=== PATIENT | male | born 1980 | race Caucasian/White ===

== ENCOUNTER 2019-02-06 00:05 | Emergency (ER) | payer SELFPAY ==
[2019-02-06 00:15] VITALS: TEMP 97.2; BMI 30.2
--- NOTE | 2019-02-06 00:37 | PDOC ---
History of Present Illness - General Chief Complaint: Pain, Acute Stated Complaint: ABD PAIN Time Seen by Provider: 02/06/19 00:22 History Source: Patient, Significant Other Exam Limitations: No Limitations - History of Present Illness Initial Comments: 02/06/19 00:31 38YOM without PMH who p/w severe right flank pain and RLQ abdominal pain for the past 2-3 hours, associated with sweats, nausea, and several episodes NBNB vomiting. He denies any urinary symptoms, blood in the urine, testicular pain or swelling, diarrhea, constipation, black/bloody/white stool, or other symptoms. No recent falls or injuries, never had pain like this before, no h/o surgery, no h/o kidney stones, did not take medication for his symptoms tonight , last ate at 8 pm. Past History - Past Medical History Allergies/Adverse Reactions: Allergies Allergy/AdvReac Type Severity Reaction Status Date / Time No Known Allergies Allergy Verified 02/06/19 00:37 Home Medications: Ambulatory Orders NK [No Known Home Medication] 02/06/19 - Suicide/Smoking/Psychosocial Hx Smoking History: Unknown if ever smoked Have you smoked in the past 12 months: No Information on smoking cessation initiated: No Hx Alcohol Use: No (unknown) Drug/Substance Use Hx: No (unknown) Review of Systems - Review of Systems Able to Perform ROS?: Yes Comments:: 02/06/19 00:32 GEN: sweats, chilld, no fever, generalized weakness, or weight change HEENT: no ear pain, sore throat, vision change, or eye pain CV: no chest pain, palpitations, lightheadedness, syncope, or edema RESP: no cough, wheezing, or SOB GI: abdominal pain, nausea, vomiting, no diarrhea, constipation, or white/black/ bloody stool : no dysuria, hematuria, incontinence, retention, bleeding, testicular pain/ swelling, or discharge MSK: no neck/back pain, muscle weakness/pain, or joint swelling/pain NEURO: no headache, seizure, vertigo, numbness, tingling, or focal weakness PSYCH: no substance use, no behavior change SKIN: no jaundice, no rash ROS otherwise negative except as noted in HPI *Physical Exam - Vital Signs Last Vital Signs Temp Pulse Resp BP Pulse Ox 97.2 F L 85 22 H 140/74 100 02/06/19 00:14 02/06/19 00:14 02/06/19 00:14 02/06/19 00:14 02/06/19 00:14 - Physical Exam Comments: 02/06/19 00:33 GENERAL: uncomfortable-appearing, mild-moderate distress, pale and diaphoretic appearing, cannot appear to get comfortable, answers questions appropriately, accompanied by significant other, seen walking back and forth to the bathroom to vomit HEENT: PERRLA, EOMI, moist mucous membranes NECK/BACK: no midline ttp, no spinal stepoff or deformity, no hematoma, full ROM , neck supple CARDIOVASCULAR: regular rate/rhythm, normal S1S2, no MGR, strong peripheral pulses, capillary refill <2 seconds, extremities wwp, no edema LUNGS/RESPIRATORY: no respiratory distress, CTAB GI/ABDOMEN: symmetric [id number], normoactive BS, soft, mild-moderate RLQ ttp a McBurney's point, no rebound tenderness, no midline pulsatile masses : right CVA tenderness, no testicular swelling/skin changed/tenderness, normal cremasteric reflexes bilaterally, normal testicular lay EXTREMITIES: no muscle atrophy, no acute deformity SKIN: warm and dry, no pallor, no jaundice, no rash, no bruising, no skin breakdown, no cuts, no lesions NEUROLOGICAL: GCS 15, CN II-XII grossly intact, 5/5 strength proximally and distally, no facial droop ED Treatment Course - LABORATORY CBC & Chemistry Diagram: 02/06/19 00:24 02/06/19 00:24 Medical Decision Making - Medical Decision Making 02/06/19 00:32 38YOM without PMH p/w severe flank pain and RLQ pain onset tonight with n/v ( NBNB). Initial Vital Signs Temp Pulse Resp BP Pulse Ox 97.2 F L 85 22 H 140/74 100 02/06/19 00:14 02/06/19 00:14 02/06/19 00:14 02/06/19 00:14 02/06/19 00:14 Exam: As noted in Physical Exam section. DDX IBNLT: most likely renal colic, obstructive uropathy, appendicitis or UTI/ pyelonephritis. Less likely but still considered are AAA/AD, pneumothorax, cholecystitis, cholangitis, pancreatitis, gastritis, PUD, colitis, ruptured diverticulosis, diverticulitis wwo abscess or perforation, hernia, SBO, malignancy, splenic infarction, mesenteric ischemia, bowel perforation, urethritis, musculoskeletal, constipation, etc. Unlikely testicular torsion without testicular symptoms or physical exam findings. W/U ordered: Labs as noted below, dry CT A/P TX ordered: Ofirmev, Morphine, Zofran, IVF Laboratory Tests 02/06/19 02/06/19 02/06/19 00:24 00:24 00:24 WBC 23.1 H RBC 4.87 Hgb 14.3 Hct 41.8 MCV 85.8 MCH 29.4 MCHC 34.3 RDW 13.4 Plt Count 313 MPV 8.6 Absolute Neuts (auto) 17.0 H Neutrophils % 73.4 Lymphocytes % 18.6 Monocytes % 6.7 Eosinophils % 1.1 Basophils % 0.2 Nucleated RBC % 0 PT with INR INR Sodium 141 Potassium 3.4 L Chloride 107 Carbon Dioxide 27 Anion Gap 8 BUN 14.8 Creatinine 1.3 Est GFR (CKD-EPI)AfAm 80.79 Est GFR (CKD-EPI)NonAf 69.70 Random Glucose 141 H Calcium 9.6 Total Bilirubin 0.6 AST 17 ALT 24 Alkaline Phosphatase 57 Total Protein 8.2 Albumin 4.4 Lipase 140 Urine Color Urine Appearance Urine pH Ur Specific [place] Urine Protein Urine Glucose (UA) Urine Ketones Urine Blood Urine Nitrite Urine Bilirubin Urine Urobilinogen Ur Leukocyte Esterase Urine WBC (Auto) Urine RBC (Auto) Urine Casts (Auto) U Epithel Cells (Auto) Urine Bacteria (Auto) Blood Type Antibody Screen 02/06/19 02/06/19 02/06/19 00:24 00:24 03:40 WBC RBC Hgb Hct MCV MCH MCHC RDW Plt Count MPV Absolute Neuts (auto) Neutrophils % Lymphocytes % Monocytes % Eosinophils % Basophils % Nucleated RBC % PT with INR 11.80 INR 1.00 Sodium Potassium Chloride Carbon Dioxide Anion Gap BUN Creatinine Est GFR (CKD-EPI)AfAm Est GFR (CKD-EPI)NonAf Random Glucose Calcium Total Bilirubin AST ALT Alkaline Phosphatase Total Protein Albumin Lipase Urine Color Yellow Urine Appearance Clear Urine pH 5.5 Ur Specific [place] 1.032 Urine Protein Negative Urine Glucose (UA) Negative Urine Ketones Trace H Urine Blood 2+ H Urine Nitrite Negative Urine Bilirubin Negative Urine Urobilinogen 0.2 Ur Leukocyte Esterase Negative Urine WBC (Auto) 3 Urine RBC (Auto) 19 Urine Casts (Auto) 16 U Epithel Cells (Auto) 2.4 Urine Bacteria (Auto) 1.7 Blood Type AB POSITIVE Antibody Screen Negative Reassessment: Patient states much more comfortable, states no pain at this time. He has urinated and did not see stone pass. UA does not show any e/o infection. 02/06/19 04:28 This patient has gotten significant relief of symptoms while in the ED. On last reassessment, vitals are wnl, pain is reasonably controlled, and exam is benign. Workup is not concerning for emergency-level pathology at this time. This patient is appropriate for discharge with close outpatient follow up. They are comfortable with this plan and will follow up with their primary care provider in 1-3 days. Referral information is given for Urology. E-Rx is sent to the Pt's pharmacy for tamsulosin 0.4mg daily x7 days. They are counseled to stay well-hydrated and use Ibupfrofen 800mg q6h prn. Specific return precautions are discussed and they will come back to the ER if necessary. *DC/Admit/Observation/Transfer Diagnosis at time of Disposition: Ureteral stone with hydronephrosis - Discharge Dispostion Disposition: HOME Condition at time of disposition: Stable Decision to Admit order: No - Referrals - Patient Instructions Printed Discharge Instructions: DI for Kidney Stones Additional Instructions: You were seen in the ER for a kidney stone. We did laboratory tests on your urine and found blood in the urine, which is common with kidney stones. We did not see signs of an infection in the urine or on your vital signs. We did a CT scan which showed the stone has almost passed. There was some fluid backup into your right kidney, which can be a problem if an infection develops, so be careful and watch out for fever, chills, new character of the pain, burning when you urinate, or other new symptoms. We gave you medications and IV fluids which helped your symptoms. After our assessment, we do not believe you are having a medical emergency at this time, and we believe you are safe to go home. We are giving you referral information for a urologist who you should see and speak with regarding this kidney stone to prevent future stones. Please take over the counter pain medications for pain, following the instructions on the medication label. Please follow up with your primary care provider in 1-3 days. Call their clinic [facility], tell them you were seen in the ER, and tell them you need an appointment. Please come back to the ER at any time, 24 hours a day , for any new or worsening symptoms, like worsening pain unrelieved with medications, fever, inability to urinate, burning on urination, testicular pain or swelling, or other symptoms. If you are having severe or life threatening symptoms, or symptoms that make it unsafe to drive or have someone drive you, please call 911. - Post Discharge Activity
[2019-02-06] MEDS ORDERED: morphine CARPU-JECT 4 MG/1 ML DISP.SYRIN IVPUSH ONE (00:38)
[2019-02-06] MEDS ORDERED: ACETAMINOPHEN 1000 MG/100 ML VIAL (NON FORMULARY) IVPB ONE (00:38)
[2019-02-06] MEDS ORDERED: SODIUM CHLORIDE 0.9% 500 ML INFUS.BAG IV ONE (00:39)
[2019-02-06] MEDS ORDERED: ONDANSETRON 4 MG/2 ML VIAL IVPUSH ONE (00:41)
[2019-02-06] MEDS ORDERED: ACETAMINOPHEN INJECTION 100 ML IVPB ONE (00:50)
[2019-02-06] MEDS ORDERED: morphine SULFATE 4 MG/ML VIAL ONE (00:50)
[2019-02-06] MEDS ORDERED: ONDANSETRON 4 MG/2 ML VIAL ONE (00:51)
[2019-02-06] MEDS ORDERED: KETOROLAC TROMETHAMINE 30 MG/1 ML VIAL IVPUSH ONE (01:12)
--- NOTE | 2019-02-06 01:12 | PDOC ---
Documentation entered by Leandro Huynh SCRIBE, acting as scribe for Tiffany Pope MD. Tiffany Pope MD: This documentation has been prepared by the Lino tello Elijah, SCRIBE, under my direction and personally reviewed by me in its entirety. I confirm that the documentation accurately reflects all work, treatment, procedures, and medical decision making performed by me. Attending Attestation - Resident Resident Name: Genesis Goodwin - ED Attending Attestation I have performed the following: I have examined & evaluated the patient, The case was reviewed & discussed with the resident, I agree w/resident's findings & plan - HPI HPI: 02/06/19 00:45 Patient is a 38 year old male with no reported past medical history who presents to the ED with R-sided Flank pain and Right Lower abdominal pain lasting for x3 hours. Patient tried to sleep after the onset of his pain and afterwards, he had an episode of NBNB vomiting. Patient has not taken anything for pain and notes that he has never experienced a pain like this before. Patient last ate at 8pm. Allergies: NKA - Physicial Exam PE: 02/06/19 00:53 GENERAL: Awake, alert, and fully oriented HEAD: No signs of trauma EYES: PERRLA, EOMI, sclera anicteric, conjunctiva clear ENT: Auricles normal inspection, hearing grossly normal, nares patent, oropharynx clear without exudates. Moist mucosa NECK: Normal ROM, supple, no lymphadenopathy, JVD, or masses LUNGS: Breath sounds equal, clear to auscultation bilaterally. No wheezes, and no crackles HEART: Regular rate and rhythm, normal S1 and S2, no murmurs, rubs or gallops ABDOMEN: +Right Sided Belly Pain +Minimal Guarding. Normoactive bowel sounds. No rebound. No masses EXTREMITIES: Normal range of motion, no edema. No clubbing or cyanosis. No cords, erythema, or tenderness NEUROLOGICAL: Cranial nerves II through XII grossly intact. Normal speech, normal gait SKIN: +Cold, +Clammy +Pale. No rashes or lesions noted. - Medical Decision Making 02/06/19 03:24 Patient Name: TAY GARY THIS IS A PRELIMINARY REPORT FROM [facility] DATE OF SERVICE: 2019-02-06 02:21:27 IMAGES: 525 EXAM: CT ABDOMEN \T\ PELVIS CT W/O CONTR HISTORY: Abdominal pain COMPARISON: None. FINDINGS: Abdomen Liver: Normal Spleen: Normal Pancreas: Normal Gallbladder: Normal Stomach: Normal Small bowel: Normal Large bowel: Normal Appendix: Normal Adrenals:Normal Kidneys: There is a 3 mm stone at the right ureterovesicular junction with mild right-sided hydronephrosis and ureteral distention Vascular: Normal Lymphatic: Normal Peritoneal: No free peritoneal air or fluid Pelvis: Prostate: normal Rectum: Normal Bladder: Normal The inferior thorax: Normal General: Skeletal: Normal Abdominal wall: Normal IMPRESSION: Right-sided obstructive uropathy 02/06/19 04:22 UA is normal; no sign of UTI. He will be sent home with NSAIDS and nothing else. He needs to hydrate more. Pt passed his stone, because he feels vastly improved. 02/06/19 04:30 We will not prescribe flomax for pt, as we see no other stones at this time, and as his BP is on the low side.
[2019-02-06 01:15] LABS: BASO % 0.2 % (0-2.0); EOS % 1.1 % (0-4.5); HEMATOCRIT 41.8 % (35.4-49); HEMOGLOBIN 14.3 GM/dL (11.7-16.9); LYMPH % 18.6 % (8-40); MCH 29.4 pg (25.7-33.7); MCHC 34.3 g/dl (32.0-35.9); MEAN CELL VOLUME 85.8 fl (80-96); MEAN PLT VOLUME 8.6 fl (7.5-11.1); MONO % 6.7 % (3.8-10.2); NEUT % 73.4 % (42.8-82.8); PLATELET COUNT 313 K/MM3 (134-434); RBC 4.87 M/mm3 (4.00-5.60); RDW 13.4 % (11.9-15.9); WHITE BLOOD COUNT 23.1 K/mm3 (4.0-10.0)
[2019-02-06] MEDS ORDERED: KETOROLAC TROMETHAMINE 30 MG/1 ML VIAL ONE (01:18)
[2019-02-06 01:31] LABS: PROTHROMBIN TIME (PATIENT) 11.8 SEC (9.7-13.0)
[2019-02-06 01:40] LABS: ALBUMIN 4.4 g/dl (3.4-5.0); BILIRUBIN,TOTAL 0.6 mg/dL (0.2-1); BLOOD UREA NITROGEN 14.8 mg/dL (7-18); CALCIUM 9.6 mg/dL (8.5-10.1); CREATININE 1.3 mg/dL (0.55-1.3); POTASSIUM 3.4 mmol/L (3.5-5.1); TOT PROT 8.2 g/dl (6.4-8.2)
[2019-02-06 04:09] LABS: EPI CELLS 2.4 /HPF (0-5/HPF); HYALINE CASTS 16 /lpf (0-8); PH,URINE 5.5 (5.0-8.0); URINE APPEARANCE CLEAR; URINE BACTERIA 1.7 /hpf (NEGATIVE); URINE BILIRUBIN NEGATIVE (NEGATIVE); URINE COLOR YELLOW; URINE GLUCOSE (UA) NEGATIVE (NEGATIVE); URINE KETONE TRACE (NEGATIVE); URINE LEUK ESTERASE NEGATIVE (NEGATIVE); URINE NITRITE NEGATIVE (NEGATIVE); URINE PROTEIN NEGATIVE (NEGATIVE); URINE RBC 19 /hpf (0-4); URINE UROBILINOGEN 0.2 mg/dL (0.2-1.0); URINE WBC 3 /hpf (0-5)
[2019-02-06 04:53] VITALS: BP 119/67; PULSE 88
[2019-02-06 05:33] LABS: ANISOCYTOSIS 0; HELMET CELLS 0; HOWELL-JOLLY BODIES 0; MACROCYTOSIS 0; OVALOCYTE 0; PLATELET ESTIMATE NORMAL; ROULEAU 0; SICKELED CELLS 0; TARGET CELLS 0; TEAR DROP CELLS 0; TOXIC GRANULATION 0
== END 2019-02-06 04:53 | disposition home or self-care (01) ==
LOC: JER 00:05
PROC: 3E0337Z Introduction of Electrolytic and Water Balance Substance into Peripheral Vein, Percutaneous Approach (ICD-10-PCS; principal; 2019-02-06)
PROC: 3E033NZ Introduction of Analgesics, Hypnotics, Sedatives into Peripheral Vein, Percutaneous Approach (ICD-10-PCS; 2019-02-06)
PROC: 3E0333Z Introduction of Anti-inflammatory into Peripheral Vein, Percutaneous Approach (ICD-10-PCS; 2019-02-06)
PROC: 3E033GC Introduction of Other Therapeutic Substance into Peripheral Vein, Percutaneous Approach (ICD-10-PCS; 2019-02-06)
DX: N13.2 Hydronephrosis with renal and ureteral calculous obstruction (principal)
CPT/HCPCS: 36415; 74176-TC; 80053; 81003; 83690; 85025; 85610; 86850; 86900; 86901; 87086; 99283-25; J0131

== ENCOUNTER 2021-10-27 02:00 | Emergency (ER) | payer BC ==
[2021-10-27 02:06] VITALS: BP 137/76; PULSE 75; TEMP 98.6; BMI 30.2
[2021-10-27] MEDS ORDERED: KETOROLAC TROMETHAMINE 60 MG/2 ML VIAL IM ONE (02:27)
[2021-10-27] MEDS ORDERED: KETOROLAC TROMETHAMINE 60 MG/2 ML VIAL ONE (02:29)
== END 2021-10-27 02:48 | disposition home or self-care (01) ==
LOC: FER 02:00
PROC: 3E0233Z Introduction of Anti-inflammatory into Muscle, Percutaneous Approach (ICD-10-PCS; principal; 2021-10-27)
DX: S33.5XXA Sprain of ligaments of lumbar spine, initial encounter (principal); X50.9XXA Other and unspecified overexertion or strenuous movements or postures, initial encounter; V49.40XA Driver injured in collision with unspecified motor vehicles in traffic accident, initial encounter
CPT/HCPCS: 99284-25

== ENCOUNTER 2022-05-31 17:20 | Emergency (ER) | payer OTHER, BC ==
[2022-05-31 17:40] VITALS: BP 103/79; PULSE 82; RESP 16; TEMP 99.5; BMI 32.3
[2022-05-31] MEDS ORDERED: IBUPROFEN 400 MG TABLET (FP) PO ONE ×2 (18:07→18:45)
== END 2022-05-31 18:59 | disposition home or self-care (01) ==
LOC: FER 17:20
DX: S62.304A Unspecified fracture of fourth metacarpal bone, right hand, initial encounter for closed fracture (principal)
CPT/HCPCS: 73130-TC-RT-FY; 99284-25